=== PATIENT | female | born 1965 | race African-American/Black ===

== ENCOUNTER 2018-09-03 13:30 | Emergency (ER) | payer MEDICAID ==
[~2018-09-03] VITALS: Ht 167.6 cm; Wt 64.9 kg
[2018-09-03] MEDS ORDERED: diphenhydrAMINE HCL 50 MG/ML VIAL ONE (13:44)
[2018-09-03] MEDS ORDERED: MORPHINE SULFATE INJ 4 MG/ML DISP.SYRIN ONE (13:45)
--- NOTE | 2018-09-03 13:45 | NUR ---
C/O RIGHT SIDE OF THE HEAD PAIN AND R ARM PAIN x 1 WEEK AND WORSE THIS 4AM, WITH BLURRED VISION. PT HAS A STUTTER WITH ONSET TODAY. APPEARS ANXIOUS. AOX4, AMBULATORY, RR EVEN AND UNLABORED. SKIN INTACT. IV ACCESS ESTABLISHED, BLOOD DRAWN, EKG COMPLETED. HOOKED TO MONITOR. SEEN BY DR YEUNG.
[2018-09-03 13:56] LABS: CALCIUM, SERUM 9.6 mg/dL (8.5-10.1); POTASSIUM 3.5 mmol/L (3.5-5.1)
[2018-09-03] MEDS ORDERED: diphenhydrAMINE HCL 50 MG/ML VIAL IV ONE (14:00)
[2018-09-03] MEDS ORDERED: IV NS 0.9% 1,000 ML BAG IV ONE (14:00)
[2018-09-03] MEDS ORDERED: MORPHINE SULFATE INJ 2 MG/ML DISP.SYRIN IV ONE (14:00)
[2018-09-03 14:06] LABS: ALBUMIN 4.6 g/dL (3.4-5.0); BASOPHILS % (AUTO) 0.6 % (0.0-2.0); BILIRUBIN,DIRECT 0.1 mg/dL (0.0-0.2); BILIRUBIN,TOTAL 0.8 mg/dL (0.2-1.0); EOSINOPHILS % (AUTO) 0.3 % (0.0-6.0); HEMATOCRIT 45 % (33-45); HEMOGLOBIN 16.1 g/dL (11.5-14.8); LYMPHOCYTES # (AUTO) 1.7 /CMM (0.8-4.8); LYMPHOCYTES % (AUTO) 27.7 % (20.0-44.0); MEAN CORPUSCULAR HGB CONC 36 g/dl (31.0-36.0); MEAN CORPUSCULAR VOLUME 93 fL (82-100); MONOCYTES # (AUTO) 0.4 /CMM (0.1-1.30); MONOCYTES % (AUTO) 6.8 % (2.0-12.0); NEUTROPHILS # (AUTO) 3.9 /CMM (1.8-8.9); NEUTROPHILS % (AUTO) 64.6 % (43.0-81.0); PLATELET COUNT (AUTO) 244 /CMM (150-450); RED BLOOD CELL COUNT(AUTO) 4.85 MIL/uL (4.0-5.2); TOTAL PROTEIN, SERUM 8.5 g/dL (6.4-8.2); WHITE BLOOD COUNT (AUTO) 6.1 K/uL (4.3-11.0)
--- NOTE | 2018-09-03 14:19 | NUR ---
PT AMBULATED TO RESTROOM
--- NOTE | 2018-09-03 14:27 | NUR ---
PT TAKEN TO RADIOLOGY VIA [facility]
--- NOTE | 2018-09-03 14:51 | NUR ---
PT STATES PAIN IN HEAD AND ARM IS BETTER, BUT EAR PAIN REMAINS.
--- NOTE | 2018-09-03 15:42 | NUR ---
IV removed. Catheter intact and site benign. Pressure and 4x4 applied to site. No bleeding noted. Patient discharged to home in stable condition. Written and verbal after care instructions given. Patient verbalizes understanding of instruction.
[2018-09-03 15:44] VITALS: BP 166/93
== END 2018-09-03 15:44 | disposition home or self-care (01) ==
LOC: ER 13:32
DX: R51 Headache (principal); G40.909 Epilepsy, unspecified, not intractable, without status epilepticus; F41.9 Anxiety disorder, unspecified; R42 Dizziness and giddiness; Z90.710 Acquired absence of both cervix and uterus; Z60.2 Problems related to living alone
CPT/HCPCS: 36415; 70450; 71045; 80048; 80076; 82962; 85025; 85652; 85730; 93005 ×2; 96361; 96374; 96375; 99284; J1200; J2270; J7030

== ENCOUNTER 2018-11-11 01:29 | Emergency (ER) | payer SELFPAY ==
[~2018-11-11] VITALS: Ht 167.6 cm; Wt 59.4 kg
--- NOTE | 2018-11-11 01:42 | NUR ---
PT BIBSELF C/O DIZZINESS/R EAR PAIN/HEADACHE X 1 WEEK. PT AOX4. NAD NOTED. RESP EVEN AND UNLABORED. PT ON MONITOR IN BED 11. WILL CONTINUE TO MONITOR.
--- NOTE | 2018-11-11 02:42 | NUR ---
TECH AT BEDSIDE FOR EKG
[2018-11-11] MEDS ORDERED: MECLIZINE HCL 12.5 MG TABLET ONE (02:43)
[2018-11-11 02:50] VITALS: BP 133/91
[2018-11-11] MEDS ORDERED: MECLIZINE HCL 25 MG TABLET PO ONE (03:00)
--- NOTE | 2018-11-11 03:03 | NUR ---
TECH AT BEDSIDE FOR R EAR LAVAGE
--- NOTE | 2018-11-11 03:50 | NUR ---
Patient discharged to home in stable condition. Written and verbal after care instructions given. Patient verbalizes understanding of instruction. PT AMBULATORY WITH STEADY GAIT.
== END 2018-11-11 04:12 | disposition home or self-care (01) ==
LOC: ER 01:35
DX: R42 Dizziness and giddiness (principal); H61.21 Impacted cerumen, right ear; G40.909 Epilepsy, unspecified, not intractable, without status epilepticus; Z90.710 Acquired absence of both cervix and uterus; Z60.2 Problems related to living alone
CPT/HCPCS: 69209; 93005; 99283; J8597 ×2

== ENCOUNTER 2019-01-02 12:39 | Emergency (ER) | payer SELFPAY ==
[~2019-01-02] VITALS: Ht 170.2 cm; Wt 59.4 kg
--- NOTE | 2019-01-02 12:45 | NUR ---
PT BIB SELF C/O DIZZNESS, PT IS AAOX4, NOT IN RESPIRATORY DISTRESS, HOOKED TO MONITOR, KEPT RESTED AND COMFORTABLE, WILL CONTINUE TO MONITOR.
--- NOTE | 2019-01-02 13:05 | NUR ---
SEEN AND EXAMINED BY CARLITO VAZQUEZ.
--- NOTE | 2019-01-02 13:10 | NUR ---
URINE SPECIMEN COLLECTED AND SENT TO LAB.
--- NOTE | 2019-01-02 13:15 | NUR ---
DARNELL RAMOS AT BEDSIDE FOR BLOOD DRAW.
[2019-01-02 13:18] LABS: APPEARANCE,URINE Clear (CLEAR); BILIRUBIN,URINE Negative (NEGATIVE); BLOOD, URINE Moderate Ery/uL (NEGATIVE); COLOR,URINE Yellow (YELLOW); KETONES,URINE Negative (NEGATIVE); LEUKOCYTE ESTERASE ,URINE Negative (NEGATIVE); NITRITE, URINE Negative (NEGATIVE); PH,URINE 8.5 (5.0-8.0); PROTEIN,URINE Negative (NEGATIVE); UGLUCOSE Negative (NEGATIVE); UROBILINOGEN,URINE 0.2 EU/dL (0.2)
[2019-01-02 13:20] LABS: BACTERIA,URINE Few /HPF (None Seen); SQUAMOUS EPITHELIAL CELL,UR Few /HPF (None Seen); WBC,URINE 0-2 /HPF (0-3)
[2019-01-02 13:22] LABS: BASOPHILS # (AUTO) 0.1 /CMM (0.0-0.2); BASOPHILS % (AUTO) 1.2 % (0.0-2.0); HEMATOCRIT 42 % (33-45); HEMOGLOBIN 14.4 g/dL (11.5-14.8); LYMPHOCYTES # (AUTO) 0.9 /CMM (0.8-4.8); LYMPHOCYTES % (AUTO) 20.6 % (20.0-44.0); MEAN CORPUSCULAR HGB CONC 34 g/dl (31.0-36.0); MEAN CORPUSCULAR VOLUME 96 fL (82-100); MONOCYTES # (AUTO) 0.3 /CMM (0.1-1.30); MONOCYTES % (AUTO) 6.9 % (2.0-12.0); NEUTROPHILS # (AUTO) 3.1 /CMM (1.8-8.9); NEUTROPHILS % (AUTO) 71.3 % (43.0-81.0); PLATELET COUNT (AUTO) 186 /CMM (150-450); RED BLOOD CELL COUNT(AUTO) 4.36 MIL/uL (4.0-5.2); WHITE BLOOD COUNT (AUTO) 4.3 K/uL (4.3-11.0)
[2019-01-02 13:28] LABS: CALCIUM, SERUM 9.5 mg/dL (8.5-10.1); CREATININE 0.8 mg/dL (0.6-1.3); POTASSIUM 4.4 mmol/L (3.5-5.1)
[2019-01-02 13:34] LABS: BILIRUBIN,DIRECT 0.1 mg/dL (0.0-0.2); BILIRUBIN,TOTAL 0.5 mg/dL (0.2-1.0); TOTAL PROTEIN, SERUM 7.5 g/dL (6.4-8.2)
--- NOTE | 2019-01-02 14:29 | NUR ---
Patient discharged to home in stable condition. Written and verbal after care instructions given. Patient verbalizes understanding of instruction.
[2019-01-02 14:31] VITALS: BP 145/92
== END 2019-01-02 14:41 | disposition home or self-care (01) ==
LOC: ER 12:42
DX: R42 Dizziness and giddiness (principal); I95.1 Orthostatic hypotension; H92.01 Otalgia, right ear; G40.909 Epilepsy, unspecified, not intractable, without status epilepticus; Z90.710 Acquired absence of both cervix and uterus; Z60.2 Problems related to living alone
CPT/HCPCS: 36415; 80048-TC; 80076-TC; 81000-TC; 85025-TC

== ENCOUNTER 2019-01-05 19:10 | Emergency (ER) | payer SELFPAY ==
[~2019-01-05] VITALS: Ht 167.6 cm; Wt 58.6 kg
[2019-01-05 19:35] VITALS: BP 175/109
--- NOTE | 2019-01-05 19:35 | NUR ---
PT BIBSELF C/O DIZZINESS/R SIDE HEAD/R EAR PAIN X 1 WEEK. PATIENT STATES WAS SEEN HERE IN ER ON TUESDAY FOR SAME. PT AOX4. NAD NOTED. RESP EVEN AND UNLABORED. PT STATES GOTTEN WORSE SINCE LAST VISIT. PT DENIES HX OF HYPERTENSION. BP 175/109. PT ON MONITOR IN BED 11. WILL CONTINUE TO MONITOR.
[2019-01-05] MEDS ORDERED: ACETAMINOPHEN ES 500 MG TABLET ONE (20:36)
--- NOTE | 2019-01-05 20:42 | NUR ---
PATIENT TAKEN TO RADIOLOGY VIA GURNEY. WAIVER SIGNED.
--- NOTE | 2019-01-05 20:49 | NUR ---
PATIENT BACK FROM RADIOLOGY
[2019-01-05] MEDS ORDERED: ACETAMINOPHEN ES 500 MG TABLET PO ONE (21:00)
--- NOTE | 2019-01-05 21:01 | NUR ---
PATIENT ABLE TO AMBULATE TO RESTROOM. DID NOT OBTAIN URINE SAMPLE. PATIENT STATES SHE FORGOT WE NEEDED ONE.
--- NOTE | 2019-01-05 21:09 | NUR ---
URINE SAMPLE OBTAINED AND SENT TO LAB.
[2019-01-05] MEDS ORDERED: KETOROLAC TROMETHAMINE INJ 30 MG/ML VIAL IM ONE (21:30)
[2019-01-05] MEDS ORDERED: KETOROLAC TROMETHAMINE INJ 30 MG/ML VIAL ONE (22:17)
--- NOTE | 2019-01-05 22:25 | NUR ---
Patient discharged to home in stable condition. Written and verbal after care instructions given. Patient verbalizes understanding of instruction. Patient denies any pain at this time. ambulatory.
== END 2019-01-05 22:30 | disposition home or self-care (01) ==
LOC: ER 19:15
DX: R51 Headache (principal); R03.0 Elevated blood-pressure reading, without diagnosis of hypertension; R42 Dizziness and giddiness; G40.909 Epilepsy, unspecified, not intractable, without status epilepticus; Z90.710 Acquired absence of both cervix and uterus; Z98.890 Other specified postprocedural states; Z60.2 Problems related to living alone
CPT/HCPCS: 70450; 84703; 96372; 99284; J1885